=== PATIENT | female | born 2005 | race Two or more races ===

== ENCOUNTER 2024-03-24 11:41 | Emergency (ER) | payer OTHER ==
[2024-03-24 11:47] VITALS: BP 119/74; PULSE 88; RESP 20; TEMP 98.6; BMI 29.1
[2024-03-24] MEDS ORDERED: DIPHTH,PERTUSS(ACELL),TET 0.5 ML DISP.SYRIN IM ONE (12:09)
== END 2024-03-24 12:25 | disposition left against medical advice (07) ==
LOC: JERFT 11:41
DX: S99.921A Unspecified injury of right foot, initial encounter (principal); W20.8XXA Other cause of strike by thrown, projected or falling object, initial encounter
CPT/HCPCS: 99281-25